=== PATIENT | female | born 1985 | race Caucasian/White ===

== ENCOUNTER 2025-06-15 13:57 | Emergency (ER) | payer OTHER, SELFPAY ==
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
[2025-06-15 14:18] VITALS: BP 169/78; PULSE 69; RESP 18; TEMP 37.4; O2SAT 98; BMI 24.1
[2025-06-15 15:48] VITALS: BP 169/78; PULSE 69; RESP 18; TEMP 37.4; O2SAT 98
--- OUTSIDE RECORDS SUMMARY | 2025-06-15 16:13 | XMS_ITS | Clinical Summary ---
Author Organization [facility] Address [address] [place] [id number] Phone Care Team Providers Care Animal Caretaker Supervisor Name Role Phone Reynold Melendez MD Primary Care Prov ider Allergies Active Allergy Reactions Criticality Noted Date Comments Metronidazole 03/04/2022 Medications No known medications Active Problems Problem Noted Date Diagnosed Date Heel pain, chronic, left 03/08/2022 Social History Tobacco Use Types Packs/Day Years Used Date Smoking Tobacco: Never Smokeless Tobacco: Never Education Answer Date Recorded Are you interested in more education? Not on heather e 03/07/2023 Are you concerned about learning? Not on file 03/07/2023 No 03/07/2023 No 03/07/2023 Digital Access Answer Date Recorded No 04/07/2023 No 04/07/2023 No 04/07/2023 Reliable internet access at home? Not on file 04/07/2023 Device with a working camera? Not on file Comments Unknown Sex and Gender Information Value Date Recorded Sex Assigned at Not on file Legal Sex Female 9:17 PM EDT Gender Identity Not on file Sexual Orientation Not on file Last Filed Vital Signs Vital Sign Reading Time Taken Comments Blood Pressure 122/82 09/25/2011 8:51 AM EST Pulse - - Temperature - - Respiratory Rate - - Oxygen Saturation - - Inhaled Oxygen Concentration - - Weight 61.2 kg (135 lb) 03/04/2022 12:00 PM EDT Height 162.6 cm (5' 4 ) 03/04/2022 12:00 PM EDT Body Mass Index 23.17 03/04/2022 12:00 PM EDT Plan of Treatment Health Maintenance Due Date Last Done Comments DEPRESSION SCREENING 1995 HIV ONE-TIME SCREENING (18-6 5 YEARS) 2001 Adult Td,Tdap Booster 11/10/2018 11/10/2008 MAMMOGRAM 2023 COVID-19 VACCINE (2023-2 5 season) 2024 PAP SMEAR 02/05/2025 02/05/2022, 01/11/2021 HEPATITIS C SCREENING Completed 05/10/2021 SMOKING STATUS SCREENING (On ce After 26 Yrs) Completed 03/04/2022 HEPATITIS A VACCINES Aged Out No long er eligible based on patient's age to complete this topic HIB VACCINES Aged Out No longer eligi ble based on patient's age to complete this topic MENINGOCOCCAL VACCINES (ACWY) Aged Out No longer eligible based on patient's age to complete this topic MENINGOCOCCAL VACCINES (B) Aged Out N o longer eligible based on patient's age to complete this topic PNEUMOCOCCAL VACCINES (0-49 years) Aged Out No longer eligible b ased on patient's age to complete this topic Medical Devices Not on file Procedures Procedure Name Priority Date/Time Associated Diagnosis Comments PAP TEST Routine 02/05/2022 12:00 AM EDT from Last 3 Months or Most Recently Relevant to Health Maintenance Results * Pap Smear (02/05/2022 12:00 AM EDT) 02/05/2022 02/06/2022 9:3 9 AM EDT Narrative SEE NARRATIVE - 02/12/2022 1:44 [place] [address] Junior Software Developer: Becka Pastor MD OFFICE AIDE Cytology Report FINAL DIAGNOSIS A. PAP SMEAR (SUREPATH) CE: SPECIMEN ADEQUACY: Satisfactory for evaluation; transformation zone present. INTERPRETATION: NEGATIVE FOR INTRAEPITHELIAL LESION OR MALIGNANCY. Electronically Signed Out By: MOHAN Bobby(ASCP) MOHAN Bansal(ASCP) The Pap test is a screening test primarily for squamous cancers and precursors and has associated false-negative and false-positive results. New technologies such as liquid-based preparations may decrease but will not eliminate all false-negative results. Regular sampling and follow-up of unexplained clinical signs and symptoms are recommended to minimize false negative results. PROCEDURES/ADDENDA HPV Testing (Requested) Ordered Date: 02/06/2022 A. PAP SMEAR (SUREPATH) CE: Human Papilloma Virus Test Negative for high-risk human papillomavirus types 16, 18, 45 and the Other high risk probe set (Includes 31, 33, 35, 39, 51, 52, 56, 58, 59, 66, 68) by [employer] Onclarity HR-HPV analysis. Clinical correlation is advised. This HPV test was performed at [facility], [address] [place] [address]. This test has been FDA approved for SurePath cervical cytology specimens. The accuracy and precision of this test for all other specimen sources has been verified in the Cytopathology Laboratory of the [facility] and has not been cleared or approved by the U.S. Food and Drug Administration. Clinical correlation is advised. CLINICAL HISTORY Date of Last Menstrual Period: Not Provided Menstrual History: Unknown Infection History: HPV: OTHER HIGH RISK, 2020 Other Clinical Conditions: Screening Pap Abnormal PAP: ASCUS, 2020 SPECIMEN SOURCE A: PAP SMEAR (SUREPATH) CE Patient Name: WHIT SALDIVAR : 1985 (Age: 36) Sex: F Institution: [facility] Location: [facility] Date of Collection: 02/05/2022 Date of Reported: 02/12/2022 13:44 Results to: Nancy RAYP Nancy Sterling MACHINE PECAN GATHERER CYTOLOGY ORDERABLES Final Result SEE NARRATIVE from Last 3 Months or Most Recently Relevant to Health Maintenance Insurance [facility] [place] [address] [place] [address] ACO ACO ACO Care Teams Animal Caretaker Supervisor Relationship Specialty Start Date End Date Reynold Melendez MD PCP - General Family Medicine 02/21/22 Additional Source Comments The information contained in this document represents components of the legal health record. It is not the complete legal health record.[facility]
== END 2025-06-15 15:57 | disposition home or self-care (01) ==
LOC: HO.ED 15:48
PROVIDERS: Physician Assistant Medical; Emergency Provider Emergency Medicine
DX: S13.4XXA Sprain of ligaments of cervical spine, initial encounter (principal); S06.0X0A Concussion without loss of consciousness, initial encounter; M54.2 Cervicalgia; R51.9 Headache, unspecified; R10.2 Pelvic and perineal pain; V43.52XA Car driver injured in collision with other type car in traffic accident, initial encounter; Y93.9 Activity, unspecified; Y92.410 Unspecified street and highway as the place of occurrence of the external cause; Y99.8 Other external cause status
CPT/HCPCS: 36415; 70450; 72125; 84702; 99282; 99284

== ENCOUNTER → 2025-06-15 14:22 | Outpatient (BNV) | payer SELFPAY | PROVIDERS: Emergency Provider Emergency Medicine; Visit Provider Radiology Diagnostic Radiology | DX: M54.2 Cervicalgia (principal); R68.84 Jaw pain | CPT/HCPCS: 70450; 72125 ==